=== PATIENT | male | born 1940 | race Caucasian/White ===

== ENCOUNTER 2020-10-08 17:36 | Inpatient (IN) | payer MEDICARE, BC ==
[~2020-10-08] VITALS: Ht 177.8 cm; Wt 118.8 kg
--- NOTE | ~2020-10-08 | EC ---
PATIENT:THERESE NELSON DATE OF SERVICE: 10/09/20 SEX: M MEDICAL RECORD: [id number] DATE OF : 40 LOCATION:D.M2 D.211 AGE OF PATIENT: 80 ADMISSION DATE: 10/09/20 REFERRING PHYSICIAN: INTERPRETING PHYSICIAN: ALISIA MATA MD ECHOCARDIOGRAM REPORT ECHO CHARGES 4 ECHO COMPLETE Date: 10/09/20 CLINICAL DIAGNOSIS: SYNCOPE ECHOCARDIOGRAPHIC MEASUREMENTS (adult normal given) AC root (d.<3.7cm) 2.9 cm LV Septum d (<1.2 cm> 1.0 cm Valve Excursion 1.4 cm LV Septum (systole) 1.5 cm Left Atria (s.<4.0cm> 4.8 cm LVPW d(<1.2cm) 1.1 cm RV (d.<2.3cm) 2.9 cm LVPW (sytole) 1.2 cm LV diastole(<5.6CM) 6.0 cm MV E-F(>70mm/sec) cm LV systole 4.8 cm LVOT Diameter 1.9 cm MV exc.(>10mm) 1.2 cm Est.ejection fraction (50-75%) % DOPPLER: LVIT cm/sec A 99 cm/sec E 41 cm/sec LA cm/sec RVSP 22 mmHg LVOT 114 cm/sec AOP1/2T m/s Asc. Ao 197 cm/sec RVOT 55 cm/sec RA cm/sec PA 67 cm/sec AV Gradient Peak 15.5 mmHg AV Mean 7.8 mmHg AV Area 1.9 cm MV Gradient Peak 4.1 mmHg MV Mean 1.7 mmHg MV Area cm COMMENTS: Roll Forming Supervisor: Maria Esther CAMP Buyer: 2 Dr. Weston TAPE# Pericardial Effusion N DATE OF SERVICE: Adequate 2D, color-flow imaging, spectral Doppler, and M-Mode FINDINGS: No LVH. LV internal dimensions are normal. Wall motion is mildly decreased. Estimated EF 45% to 50%. Aortic valve sclerosis without evidence of stenosis by Doppler interrogation. Mild AI by color flow imaging. Left atrium is dilated at 4.8 cm. Mitral valve shows no prolapse. Trace MR. Right side is grossly normal. Trace TR. ECHOCARDIOGRAM REPORT [id number] THERESE NELSON TRANSINT:[id number] Voice Confirmation ID: [id number] DOCUMENT ID: [id number] ALISIA MATA MD CC: [id number] DICTATION DATE: 10/11/20 1135 INTERNATIONAL AFFAIRS VICE PRESIDENT: 10/11/20 1402 DIS IN 10/10/20 [place] [id number] [place] [id number]
[~2020-10-08 17:36] MED LIST: ASPIRIN EC81 MG PO; AVODART0.5 MG PO; BACTROBAN NASAL1 GM NASAL; CALTRATE-600600 MG PO; CETIRIZINE HCL5 MG; CYCLOBENZAPRINE10 MG PO; CYMBALTA60 MG; ELIQUIS2.5 MG PO; ENDOCET 10-3251 TAB PO; FLEXERIL10 MG PO; FLOMAX0.4 MG PO; HCTZ25 MG PO; K-TAB10 MEQ PO; LASIX40 MG PO; LEVITRA2.5 MG PO; LEVITRA20 MG PO; LIPITOR40 MG PO; LOMOTIL TABLET1 TAB PO; LYCOPENE; MOBIC7.5 MG PO; MULTI-DAY VITAM1 TAB PO; NEURONTIN 300300 MG PO; NORVASC5 MG PO; PRINIVIL20 MG PO; PROCARDIA XL60 MG PO; PROTONIX40 MG PO; TUMS500 MG PO; WELLBUTRIN SR150 MG; WELLBUTRIN100 MG PO
[2020-10-08 18:42] VITALS: BP 158/64
[2020-10-08 18:43] LABS: BASOPHILS 0.4 % (0-2); EOSINOPHILS 1.9 % (0-7); HEMATOCRIT 41.5 % (42.0-54.0); HEMOGLOBIN 13.6 g/dL (13.5-17.5); LYMPHOCYTES 14.2 % (15-50); MCH 27.4 pg (26.0-34.0); MCHC 32.8 g/dL (31.0-37.0); MCV 83.5 fL (80.0-100.0); MONOCYTES 9.4 % (2-11); NEUTROPHILS 74.1 % (40-80); PLATELET COUNT 357 10x3/uL (130-400); RBC 4.97 10x6/uL (4.20-6.10); RDW 13.7 % (11.5-14.5); WBC 8.1 10x3/uL (4.8-10.8)
[2020-10-08 18:54] LABS: CALC OSMOLALITY 285 mosm/kg (275-300); CALCIUM 9.8 mg/dL (8.5-10.1); CARBON DIOXIDE 29.8 mmol/L (21.0-32.0); CHLORIDE - SERUM 105 mmol/L (98-107); CREATININE - SERUM 1.5 mg/dL (0.6-1.3); GLUCOSE 126 mg/dL (74-106); POTASSIUM - SERUM 4.1 mmol/L (3.5-5.1); SODIUM 141 mmol/L (136-145); UREA NITROGEN 21 mg/dL (7-18); eGFR NON AFRICAN AMERICAN 48 mL/min (90-120)
[2020-10-08 19:11] LABS: ALBUMIN 3.6 g/dL (3.4-5.0); ALKALINE PHOSPHATASE 113 U/L (30-120); ALT (SGPT) 57 U/L (10-68); BILIRUBIN - TOTAL 0.88 mg/dL (0.2-1.3); CREATINE KINASE 105 UL (21-232); LIPASE 82 U/L (73-393); PRO BNP 382 pg/mL (0-450); PROTEIN - SERUM 7.2 g/dL (6.4-8.2); THYROID STIMULATING HORMONE 1.12 uIU/mL (0.36-3.74)
[2020-10-08 19:14] LABS: TROPONIN-I < 0.017 ng/mL (0.000-0.060)
[2020-10-08 19:23] LABS: APTT 26.3 SECONDS (22.8-39.4); INR 1.19 (0.85-1.17)
[2020-10-08 19:31] LABS: D-DIMER-QUANTITATIVE 2.14 ug/mLFEU (0.20-0.54)
[2020-10-08 19:55] VITALS: BP 142/62
[2020-10-08 23:18] VITALS: BP 162/83; Ht 177.8 cm; Wt 118.8 kg
--- NOTE | 2020-10-08 23:42 | NUR ---
2109-- PT TO ROOM FROM ER BY THOMAS. WAS ABLE TO STAND & TRANSFER FROM ONE BED TO THE OTHER. HAS LARGE GOOSE EGG TO LEFT SIDE OF FOREHEAD & SKIN TEAR TO LEFT WRIST AREA. ALERT/ORIENTED. DOESN'T REMEMBER IF HE HAD LOC. DOES REPORT A LONG HISTORY OF FALLS IN/AROUND THE HOUSE WITH THE PREVIOUS BEING LAST WEEK. HIT HEAD IN ALMOST THE EXACT SAME SPOT. USES A CANE WITH AMBULATION BUT WAS GIVEN A WALKER ONCE IN ROOM. 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 LIVES WITH WHO RECENTLY HAD A SHOULDER SURGERY REVISED AFTER COMPLICATIONS & SHE IS ALSO AN AMPUTEE.
[2020-10-09] VITALS: BP 170/69
[2020-10-09 04:00] VITALS: BP 151/74
[2020-10-09 05:22] LABS: BASOPHILS 0.6 % (0-2); EOSINOPHILS 1.9 % (0-7); HEMATOCRIT 39.6 % (42.0-54.0); LYMPHOCYTES 18.4 % (15-50); MCH 27.3 pg (26.0-34.0); MCHC 32.8 g/dL (31.0-37.0); MCV 83.2 fL (80.0-100.0); MEAN PLATELET VOLUME 8.3 fL (7.4-10.4); MONOCYTES 10.1 % (2-11); PLATELET COUNT 326 10x3/uL (130-400); RBC 4.76 10x6/uL (4.20-6.10); RDW 13.6 % (11.5-14.5)
[2020-10-09 05:46] LABS: ALBUMIN 3.3 g/dL (3.4-5.0); ANION GAP 11.9 mmol/L (8-16); BILIRUBIN - TOTAL 0.88 mg/dL (0.2-1.3); CALCIUM 9.2 mg/dL (8.5-10.1); CARBON DIOXIDE 29.8 mmol/L (21.0-32.0); CREATININE - SERUM 1.4 mg/dL (0.6-1.3); MAGNESIUM - SERUM 1.9 mg/dL (1.8-2.4); POTASSIUM - SERUM 3.7 mmol/L (3.5-5.1); PROTEIN - SERUM 6.6 g/dL (6.4-8.2)
[2020-10-09 13:29] LABS: UDS - AMPHET NEGATIVE QUAL (NEGATIVE); UDS - BARB NEGATIVE QUAL (NEGATIVE); UDS - BENZO NEGATIVE QUAL (NEGATIVE); UDS - COCAINE NEGATIVE QUAL (NEGATIVE); UDS - OPIATE NEGATIVE QUAL (NEGATIVE); UDS - PCP NEGATIVE QUAL (NEGATIVE); UDS - THC NEGATIVE QUAL (NEGATIVE)
[2020-10-09 13:46] LABS: BILIRUBIN NEGATIVE (NEGATIVE); KETONE NEGATIVE (NEGATIVE); NITRITE NEGATIVE (NEGATIVE); UROBILINOGEN NORMAL mg/dL (< 2)
[2020-10-09] MEDS ORDERED: PROSCAR5 MG PO (14:59)
[2020-10-09] MEDS ORDERED: FLOMAX0.4 MG PO (15:00)
--- NOTE | 2020-10-09 15:54 | NUR ---
PATIENT LYING SUPINE, TRIALYSIS REMOVED AND PRESSURE HELD, NO BLEEDING AND DRESSING APPLIED, NO DISCOMFORT AND PATIENT INSTRUCTED TO LAY FLAT FOR 20 MINUTES, NO ALMENDAREZ
[2020-10-09 16:00] VITALS: BP 120/67
--- NOTE | 2020-10-09 18:02 | NUR ---
I have reviewed this patient and I concur with the Shift Assessment completed by the Licensed Practical Nurse today this shift.
[2020-10-09 21:32] VITALS: BP 160/88
[2020-10-10 01:01] VITALS: BP 160/93
--- NOTE | 2020-10-10 02:09 | NUR ---
10/09/20 @ 2019 RESTING IN BED. PLEASANT & TALKATIVE. VOICES CONCERNS REGARDING NOT BEING ABLE TO EASILY GET OUT OF BED WHEN HE NEEDS TO. HAS BEEN HAVING INCONTINENT SPELLS JUST HE GETS TO BATHROOM DOOR. TRIED REPOSITIONING THE BED SO HE COULD GET OUT OF THE BUTT DEPRESSION IN MATTRESS. WILL CONTINUE TO MONITOR.
[2020-10-10 04:47] VITALS: BP 118/68
[2020-10-10 06:24] LABS: BASOPHILS 0.9 % (0-2); EOSINOPHILS 2.9 % (0-7); HEMATOCRIT 39.6 % (42.0-54.0); HEMOGLOBIN 12.9 g/dL (13.5-17.5); LYMPHOCYTES 33.8 % (15-50); MCH 27.1 pg (26.0-34.0); MCHC 32.6 g/dL (31.0-37.0); MCV 83.2 fL (80.0-100.0); MEAN PLATELET VOLUME 8.4 fL (7.4-10.4); MONOCYTES 10.2 % (2-11); NEUTROPHILS 52.2 % (40-80); PLATELET COUNT 315 10x3/uL (130-400); RBC 4.75 10x6/uL (4.20-6.10); RDW 13.5 % (11.5-14.5); WBC 7.8 10x3/uL (4.8-10.8)
[2020-10-10 06:31] LABS: ALBUMIN 3.4 g/dL (3.4-5.0); ANION GAP 13.4 mmol/L (8-16); BILIRUBIN - TOTAL 0.73 mg/dL (0.2-1.3); CALCIUM 9.1 mg/dL (8.5-10.1); CARBON DIOXIDE 28.1 mmol/L (21.0-32.0); CREATININE - SERUM 1.6 mg/dL (0.6-1.3); MAGNESIUM - SERUM 1.9 mg/dL (1.8-2.4); POTASSIUM - SERUM 3.5 mmol/L (3.5-5.1); PROTEIN - SERUM 6.2 g/dL (6.4-8.2)
--- NOTE | 2020-10-10 06:50 | NUR ---
RECIEVED BED SIDE REPORT, PATIENT RESTING COMFORTABLY. NO PAIN OR DISTRESS VERBALIZED. RESP EVEN AND UNPLABORED ROOM AIR.
[2020-10-10 08:17] VITALS: BP 147/65
--- NOTE | 2020-10-10 09:50 | NUR ---
PATIETN AWAKE ALERT AND ORIENTED. NO CURRENT PAIN OR DISTRESS VERBALIZED. RESP EVEN AND UNLABORED. o2 SAT 99 ON ROOM AIR. LUNG SOUNDS CLEAR AT THIS TIME. R UPPER ARM IV PATENT AND SALINE LOCKED. HEART SOUNDS REGULAR RATE AND RYTHYM. TELE SR. UP AT [place] WITH WALKER. EDEMA TO BILATERAL LOWER EXTREMITES.
[2020-10-10 12:11] VITALS: BP 143/65
--- NOTE | 2020-10-10 14:30 | NUR ---
PATIENT SIGNED DISCHARGE PAPER, WAS GETTING UP TO GET DRESSED AND WAS EXCITED TO GO HOME. FELL IN BATHROOM WITH NO INJURIES, INCIDENT REPORT COMPLETED.
--- NOTE | 2020-10-10 14:38 | MORECARE ---
CASE MANAGEMENT DISCHARGE SUMMARY PATIENT: THERESE NELSON UNIT: [id number] ADM DATE: 10/09/20 AGE: 80 : 40 SEX: M [facility] AUTHOR: PAUL GUERRA PHYSICIAN: REFERRING PHYSICIAN: SERVANDO DUONG MD DATE OF SERVICE: 10/10/20 Case Management Discharge Planning Summary DCP REVIEW SUMMARY ANTICIPATED D/C DATE: 10/10/2020 EXPECTED LOS : 1 CASE STATUS: DCP Initiated INITIAL REVIEW: 10/08/2020 INITIAL REVIEWER: Mary Wyatt FINAL DISCHARGE DISPOSITION: : FINAL REVIEWER: FINAL REVIEW DATE: DCP Focus Questions & Answers QUESTION: ANSWER : PATIENT: THERESE NELSON ENCOUNTER: [id number] MEDICAL RECORD#: [id number] ADMISSION DATE: 10/09/2020 DISCHARGE DATE: ATTENDING MD: SERVANDO PRIEST : AGE: 80 MARITAL STATUS: M DC PLAN ID: [id number] FACILITY: [facility] PRINTED ON: 10/10/20 14:38 CT All edits/amendments must be made on the electronic document DICTATION DATE: 10/10/201437 HEEL SEAT FLAP STAPLER: DM 10/10/201437 RPT#: [id number] DC DATE: STATUS: ADM IN [facility] [address] [place] [address] END OF REPORT
--- NOTE | 2020-10-10 14:51 | MORECARE ---
CASE MANAGEMENT DISCHARGE SUMMARY PATIENT: THERESE NELSON UNIT: [id number] ADM DATE: 10/09/20 AGE: 80 : 40 SEX: M ROOM/BED: D.1623 AUTHOR: PAUL GUERRA PHYSICIAN: REFERRING PHYSICIAN: SERVANDO DUONG MD DATE OF SERVICE: 10/10/20 Case Management Discharge Planning Summary DCP REVIEW SUMMARY ANTICIPATED D/C DATE: 10/10/2020 EXPECTED LOS : 1 CASE STATUS: DCP Initiated INITIAL REVIEW: 10/08/2020 INITIAL REVIEWER: Mary Wyatt FINAL DISCHARGE DISPOSITION: : FINAL REVIEWER: FINAL REVIEW DATE: DCP Focus Questions & Answers DCP Screen QUESTION: ANSWER High Risk Factors: : Polypharmacy (greater than 10 meds) DCP Evaluation QUESTION: ANSWER Patient and/or caregiver agree upon recommended discharge plan? : Yes Family / Caregiver's ability to cope with chronic illness: : a. Adequate (ability to meet patient's medical needs, ensures patient attends medical appts.) Patient's current cognitive status: : *Oriented to person, place, situation, time and present Patient's ability to cope with chronic illness : d. No chronic illness Does the patient have the ability to pay for or attain post discharge needs / services? : Yes Functional screen assessment: : Basic needs can adequately be met by self Family / Caregiver's ability to cope with chronic illness: : a. Adequate (ability to meet patient's medical needs, ensures patient attends medical appts.) Physical Status: : Independent with ADL's Equipment needed for post hospitalization: : None Is there a likelihood that the patient will require additional services to return to the preadmission environment? : N/A Living Arrangements: : Home with Spouse/Significant Other Results of this evaluation have been discussed with: : Patient Patient with capacity for self-care or can be cared for in same environment as prior to hospitalization? 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 : N/A Pharmacy name(s): : [facility] Planned post hospital services covered by insurance plan? : N/A Does Patient have transportation to get home and to follow-up medical appointments when discharged from the hospital? : Yes Would patient like to participate in any Care Coordination programs (if applicable): : Not applicable Does the patient have electricity at home? : Yes Does the patient have running water in their house? : Yes Equipment in use: : Walker - Standard Equipment in use: : Shower Chair Equipment in use: : Scooter Equipment in use: : Cane - Single Leg Mental health screen: : No mental health history Psychosocial status: : Independent adult (65+) Abuse/Neglect: : None Resources / Services in place: : None DCP Re-evaluation QUESTION: ANSWER Would patient like to participate in any Care Coordination programs (if applicable): : Not applicable PATIENT: THERESE NELSON ENCOUNTER: [id number] MEDICAL RECORD#: [id number] ADMISSION DATE: 10/09/2020 DISCHARGE DATE: ATTENDING MD: SERVANDO PRIEST : AGE: 80 MARITAL STATUS: M DC PLAN ID: [id number] FACILITY: [facility] PRINTED ON: 10/10/20 14:51 CT All edits/amendments must be made on the electronic document DICTATION DATE: 10/10/201450 CARROT GRADER INSPECTOR: JOES 10/10/201450 RPT#: [id number] DC DATE: STATUS: ADM IN [facility] [address] [place] [address] END OF REPORT
--- NOTE | 2020-10-10 15:06 | MORECARE ---
CASE MANAGEMENT DISCHARGE SUMMARY PATIENT: THERESE BASS UNIT: [id number] ADM DATE: 10/09/20 AGE: 80 : 40 SEX: M ROOM/BED: D.2113 AUTHOR: MARI,DOC PHYSICIAN: REFERRING PHYSICIAN: SERVANDO DUONG MD DATE OF SERVICE: 10/10/20 Case Management Discharge Planning Summary COMMENTS ENTERED DATE: 10/10/20 14:45 CT COMMENT TYPE: Discharge Planning REVIEWER: Mary Wyatt CM met with patient to complete discharge planning assessment and offer availability of needed services. Patient states that he lives independently at home with his spouse America Bass ([phone]) prior to admission. Patient verified that home environment is safe and has electricity and running water. Patient denies need for transportation and states that he has funds for services and medications if needed. PCP is Dr Holcomb and patient uses [facility] in pharmacy. CM offered and discussed home health, rehab services, and need for any medical equipment. Patient did not express need for offered services at this time. Patient does have multiple pieces of adaptive equipment currently and does not feel a need for additional. Transportation home will be provided by souse of neighbor. Patient verbalized understanding of signed forms. IMM served, and signed copy placed on chart. HANSA form signed for refusal of additional services or needs at this time, placed on chart. DCP REVIEW SUMMARY ANTICIPATED D/C DATE: 10/10/2020 EXPECTED LOS : 1 CASE STATUS: DCP Initiated INITIAL REVIEW: 10/08/2020 INITIAL REVIEWER: Mary Wyatt FINAL DISCHARGE DISPOSITION: : FINAL REVIEWER: FINAL REVIEW DATE: FLP Focus Questions & Answers DCP Screen QUESTION: ANSWER High Risk Factors: : Polypharmacy (greater than 10 meds) DCP Evaluation QUESTION: ANSWER Patient and/or caregiver agree upon recommended discharge plan? : Yes Family / Caregiver's ability to cope with chronic illness: : a. Adequate (ability to meet patient's medical needs, ensures patient attends medical appts.) Patient's current cognitive status: : *Oriented to person, place, situation, time and present Patient's ability to cope with chronic illness : d. No chronic illness Does the patient have the ability to pay for or attain post discharge needs / services? : Yes Functional screen assessment: : Basic needs can adequately be met by self Family / Caregiver's ability to cope with chronic illness: : a. Adequate (ability to meet patient's medical needs, ensures patient attends medical appts.) Physical Status: : Independent with ADL's Equipment needed for post hospitalization: : None Is there a likelihood that the patient will require additional services to return to the preadmission environment? : N/A Living Arrangements: : Home with Spouse/Significant Other Results of this evaluation have been discussed with: : Patient Patient with capacity for self-care or can be cared for in same environment as prior to hospitalization? : Yes Baseline cognitive status: : *Oriented to person, place, situation, time and present Physical environment modification needed / anticipated for discharge: : No Medication Management: : Patient states can read and understand medication labels Medication Management: : Patient states they do have transportation to filler picker medications Medication Management: : Patient states can afford medications Planned post hospital services available for patient? : N/A Pharmacy name(s): : [facility] Planned post hospital services covered by insurance plan? : N/A Does Patient have transportation to get home and to follow-up medical appointments when discharged from the hospital? : Yes Would patient like to participate in any Care Coordination programs (if applicable): : Not applicable Does the patient have electricity at home? : Yes Does the patient have running water in their house? : Yes Equipment in use: : Walker - Standard Equipment in use: : Shower Chair Equipment in use: : Scooter Equipment in use: : Cane - Single Leg Mental health screen: : No mental health history Psychosocial status: : Independent adult (65+) Abuse/Neglect: : None Resources / Services in place: : None DCP Re-evaluation QUESTION: ANSWER Would patient like to participate in any Care Coordination programs (if applicable): : Not applicable PATIENT: THERESE BASS ENCOUNTER: [id number] MEDICAL RECORD#: [id number] ADMISSION DATE: 10/09/2020 DISCHARGE DATE: ATTENDING MD: SERVANDO PRIEST : AGE: 80 MARITAL STATUS: M DC PLAN ID: [id number] FACILITY: [facility] PRINTED ON: 10/10/20 15:06 CT All edits/amendments must be made on the electronic document DICTATION DATE: 10/10/20 1509 LABORER LIVESTOCK: JOSE 10/10/20 1505 RPT#: [id number] DC DATE: STATUS: ADM IN [facility] [address] [place] [address] END OF REPORT
--- NOTE | 2020-10-10 16:30 | NUR ---
PATIENT BROUGHT TO VEHICLE IN W/C BY SENIOR MANAGER ASSET PROTECTION. FAMILY TO PICK PATIENT UP. DISCHARGED TO HOME WITH ORERS FOR FOLLOW APPTS.
--- NOTE | 2020-10-10 17:06 | MORECARE ---
CASE MANAGEMENT DISCHARGE SUMMARY PATIENT: THERESE BASS UNIT: [id number] ADM DATE: 10/09/20 AGE: 80 : 40 SEX: M ROOM/BED: D.2113 AUTHOR: MARI,DOC PHYSICIAN: REFERRING PHYSICIAN: SERVANDO DUONG MD DATE OF SERVICE: 10/10/20 Case Management Discharge Planning Summary COMMENTS ENTERED DATE: 10/10/20 14:45 CT COMMENT TYPE: Discharge Planning REVIEWER: Mary Wyatt CM met with patient to complete discharge planning assessment and offer availability of needed services. Patient states that he lives independently at home with his spouse America Bass ([phone]) prior to admission. Patient verified that home environment is safe and has electricity and running water. Patient denies need for transportation and states that he has funds for services and medications if needed. PCP is Dr Holcomb and patient uses [facility] in pharmacy. CM offered and discussed home health, rehab services, and need for any medical equipment. Patient did not express need for offered services at this time. Patient does have multiple pieces of adaptive equipment currently and does not feel a need for additional. Transportation home will be provided by souse of neighbor. Patient verbalized understanding of signed forms. IMM served, and signed copy placed on chart. HANSA form signed for refusal of additional services or needs at this time, placed on chart. DCP REVIEW SUMMARY ANTICIPATED D/C DATE: 10/10/2020 EXPECTED LOS : 1 CASE STATUS: DCP Initiated INITIAL REVIEW: 10/08/2020 INITIAL REVIEWER: Mary Wyatt FINAL DISCHARGE DISPOSITION: : FINAL REVIEWER: FINAL REVIEW DATE: ARP Focus Questions & Answers DCP Screen QUESTION: ANSWER High Risk Factors: : Polypharmacy (greater than 10 meds) DCP Evaluation QUESTION: ANSWER Patient and/or caregiver agree upon recommended discharge plan? : Yes Family / Caregiver's ability to cope with chronic illness: : a. Adequate (ability to meet patient's medical needs, ensures patient attends medical appts.) Patient's current cognitive status: : *Oriented to person, place, situation, time and present Patient's ability to cope with chronic illness : d. No chronic illness Does the patient have the ability to pay for or attain post discharge needs / services? : Yes Functional screen assessment: : Basic needs can adequately be met by self Family / Caregiver's ability to cope with chronic illness: : a. Adequate (ability to meet patient's medical needs, ensures patient attends medical appts.) Physical Status: : Independent with ADL's Equipment needed for post hospitalization: : None Is there a likelihood that the patient will require additional services to return to the preadmission environment? : N/A Living Arrangements: : Home with Spouse/Significant Other Results of this evaluation have been discussed with: : Patient Patient with capacity for self-care or can be cared for in same environment as prior to hospitalization? 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 : N/A Pharmacy name(s): : [facility] Planned post hospital services covered by insurance plan? : N/A Does Patient have transportation to get home and to follow-up medical appointments when discharged from the hospital? : Yes Would patient like to participate in any Care Coordination programs (if applicable): : Not applicable Does the patient have electricity at home? : Yes Does the patient have running water in their house? : Yes Equipment in use: : Walker - Standard Equipment in use: : Shower Chair Equipment in use: : Scooter Equipment in use: : Cane - Single Leg Mental health screen: : No mental health history Psychosocial status: : Independent adult (65+) Abuse/Neglect: : None Resources / Services in place: : None DCP Re-evaluation QUESTION: ANSWER Would patient like to participate in any Care Coordination programs (if applicable): : Not applicable PATIENT: THERESE BASS ENCOUNTER: [id number] MEDICAL RECORD#: [id number] ADMISSION DATE: 10/09/2020 DISCHARGE DATE: 10/10/2020 ATTENDING MD: SERVANDO PRIEST : AGE: 80 MARITAL STATUS: M DC PLAN ID: [id number] FACILITY: [facility] PRINTED ON: 10/10/20 17:06 CT All edits/amendments must be made on the electronic document DICTATION DATE: 05/1705 MARITIME ENGINEER: DM 10/10/201705 RPT#: [id number] DC DATE:10/10/20 STATUS: DIS IN [facility] [address] [place] [address] END OF REPORT
--- NOTE | 2020-10-10 19:38 | MORECARE ---
CASE MANAGEMENT DISCHARGE SUMMARY PATIENT: THERESE BASS UNIT: [id number] ADM DATE: 10/09/20 AGE: 80 : 40 SEX: M ROOM/BED: D.2113 AUTHOR: MARI,DOC PHYSICIAN: REFERRING PHYSICIAN: SERVANDO DUONG MD DATE OF SERVICE: 10/10/20 Case Management Discharge Planning Summary COMMENTS ENTERED DATE: 10/10/20 14:45 CT COMMENT TYPE: Discharge Planning REVIEWER: Mary Wyatt CM met with patient to complete discharge planning assessment and offer availability of needed services. Patient states that he lives independently at home with his spouse America Bass ([phone]) prior to admission. Patient verified that home environment is safe and has electricity and running water. Patient denies need for transportation and states that he has funds for services and medications if needed. PCP is Dr Holcomb and patient uses [email or web address] in pharmacy. CM offered and discussed home health, rehab services, and need for any medical equipment. Patient did not express need for offered services at this time. Patient does have multiple pieces of adaptive equipment currently and does not feel a need for additional. Transportation home will be provided by souse of neighbor. Patient verbalized understanding of signed forms. IMM served, and signed copy placed on chart. HANSA form signed for refusal of additional services or needs at this time, placed on chart. DCP REVIEW SUMMARY ANTICIPATED D/C DATE: 10/10/2020 EXPECTED LOS : 1 CASE STATUS: DCP Initiated INITIAL REVIEW: 10/08/2020 INITIAL REVIEWER: Mary Wyatt FINAL DISCHARGE DISPOSITION: : FINAL REVIEWER: FINAL REVIEW DATE: MOP Focus Questions & Answers DCP Screen QUESTION: ANSWER High Risk Factors: : Polypharmacy (greater than 10 meds) DCP Evaluation QUESTION: ANSWER Patient and/or caregiver agree upon recommended discharge plan? : Yes Family / Caregiver's ability to cope with chronic illness: : a. Adequate (ability to meet patient's medical needs, ensures patient attends medical appts.) Patient's current cognitive status: : *Oriented to person, place, situation, time and present Patient's ability to cope with chronic illness : d. No chronic illness Does the patient have the ability to pay for or attain post discharge needs / services? : Yes Functional screen assessment: : Basic needs can adequately be met by self Family / Caregiver's ability to cope with chronic illness: : a. Adequate (ability to meet patient's medical needs, ensures patient attends medical appts.) Physical Status: : Independent with ADL's Equipment needed for post hospitalization: : None Is there a likelihood that the patient will require additional services to return to the preadmission environment? : N/A Living Arrangements: : Home with Spouse/Significant Other Results of this evaluation have been discussed with: : Patient Patient with capacity for self-care or can be cared for in same environment as prior to hospitalization? 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 : N/A Pharmacy name(s): : [facility] Planned post hospital services covered by insurance plan? : N/A Does Patient have transportation to get home and to follow-up medical appointments when discharged from the hospital? : Yes Would patient like to participate in any Care Coordination programs (if applicable): : Not applicable Does the patient have electricity at home? : Yes Does the patient have running water in their house? : Yes Equipment in use: : Walker - Standard Equipment in use: : Shower Chair Equipment in use: : Scooter Equipment in use: : Cane - Single Leg Mental health screen: : No mental health history Psychosocial status: : Independent adult (65+) Abuse/Neglect: : None Resources / Services in place: : None DCP Re-evaluation QUESTION: ANSWER Would patient like to participate in any Care Coordination programs (if applicable): : Not applicable PATIENT: THERESE BASS ENCOUNTER: [id number] MEDICAL RECORD#: [id number] ADMISSION DATE: 10/09/2020 DISCHARGE DATE: 10/10/2020 ATTENDING MD: SERVANDO PRIEST : AGE: 80 MARITAL STATUS: M DC PLAN ID: [id number] FACILITY: [facility] PRINTED ON: 10/10/20 19:38 CT All edits/amendments must be made on the electronic document DICTATION DATE: 10/10/201937 REWORKER: DM 10/10/201937 RPT#: [id number] DC DATE:10/10/20 STATUS: DIS IN [facility] [address] [place] [address] END OF REPORT
== END 2020-10-10 16:53 | disposition home or self-care (01) | DRG 605 ==
LOC: D.ER 17:36 → D.M2 19:28 → OBSVTIME 19:29 → D.M2 10-09 14:12
PROVIDERS: Family Medicine; ADMIT Family Medicine Adult Medicine; ATTEND Family Medicine Adult Medicine
DX: S00.03XA Contusion of scalp, initial encounter (principal); I45.2 Bifascicular block; G93.40 Encephalopathy, unspecified; N17.9 Acute kidney failure, unspecified; I65.29 Occlusion and stenosis of unspecified carotid artery; W19.XXXA Unspecified fall, initial encounter; R55 Syncope and collapse; I10 Essential (primary) hypertension; I25.10 Atherosclerotic heart disease of native coronary artery without angina pectoris; I73.9 Peripheral vascular disease, unspecified; E78.5 Hyperlipidemia, unspecified; M19.90 Unspecified osteoarthritis, unspecified site; F32.9 Major depressive disorder, single episode, unspecified; H54.40 Blindness, one eye, unspecified eye; I44.0 Atrioventricular block, first degree